=== PATIENT | female | born 1965 | race African-American/Black ===

== ENCOUNTER 2016-11-26 19:23 | Emergency (ER) | payer SELFPAY ==
[~2016-11-26] VITALS: Ht 165.1 cm; Wt 106.6 kg
[2016-11-26 19:45] VITALS: BP 179/81
[2016-11-26] MEDS ORDERED: predniSONE 20 MG TABLET PO ONE (19:45)
[2016-11-26] MEDS ORDERED: FAMOTIDINE 20 MG TABLET. PO ONE (19:45)
[2016-11-26] MEDS ORDERED: diphenhydrAMINE HCL 25 MG CAPSULE PO ONE (19:45)
--- NOTE | 2016-11-26 19:48 | PHYS DOC ---
Adult General Chief Complaint Chief Complaint: INSECT BITE HPI HPI Patient is a 51 year old femal presents to the emergency department stating that 4 days ago she was stung in the left upper head by a bee. She states that she did not see any stinger to pull out. She states since that time she has had a lot of pressure around to the the eye area as well as the forehead area. She does have nasal congestion. Patient states that she believes that this is all related to a bee sting. Patient denies any shortness of air difficulty breathing. She states that she has had a lot of pain and discomfort with burning sensation. Review of Systems Review of Systems Constitutional: Denies fever or chills [] Eyes: Denies change in visual acuity, redness, or eye pain [] HENT: Denies nasal congestion or sore throat [] Respiratory: Denies cough or shortness of breath [] Cardiovascular: No additional information not addressed in HPI [] GI: Denies abdominal pain, nausea, vomiting, bloody stools or diarrhea [] : Denies dysuria or hematuria [] Musculoskeletal: Denies back pain or joint pain [] Integument: Denies rash or skin lesions. C/o bee sting Neurologic: Denies headache, focal weakness or sensory changes [] Endocrine: Denies polyuria or polydipsia [] Current Medications Current Medications Current Medications Medications (Trade) Dose Ordered Sig/Noah Start Time Stop Time Status Last Admin Dose Admin Diphenhydramine HCl (Benadryl) 25 mg 1X ONCE 11/26/16 19:45 11/26/16 19:46 DC 11/26/16 19:57 25 MG Diphtheria/ Tetanus/Acell Pertussis (Boostrix) 0.5 ml ONCE ONCE 11/26/16 20:00 11/26/16 20:01 DC 11/26/16 20:46 0.5 ML Famotidine (Pepcid) 20 mg 1X ONCE 11/26/16 19:45 11/26/16 19:46 DC 11/26/16 19:57 20 MG Guaifenesin (MUCINEX ER with DM) 1 tab BID 11/26/16 22:00 11/26/16 21:30 1 TAB Ibuprofen (Motrin) 800 mg 1X ONCE 11/26/16 22:00 11/26/16 22:01 11/26/16 21:30 800 MG Prednisone (Prednisone) 40 mg 1X ONCE 11/26/16 19:45 11/26/16 19:46 DC 11/26/16 19:57 40 MG Pseudoephedrine HCl (Sudafed) 30 mg 1X ONCE 11/26/16 22:00 11/26/16 22:01 11/26/16 21:31 30 MG Allergies Allergies Allergies Coded Allergies Type Severity Reaction Last Updated Verified No Known Drug Allergies 11/26/16 No Physical Exam Physical Exam Constitutional: Well developed, well nourished, no acute distress, non-toxic appearance. [] HENT: Normocephalic, atraumatic, bilateral external ears normal, oropharynx moist, no oral exudates, nose normal. [] Eyes: PERRLA, EOMI, conjunctiva normal. Patient with left eye clear drainage noted. Slight swelling noted around the left maxillary area. Neck: Normal range of motion, no tenderness, supple, no stridor. [] Cardiovascular:Heart rate regular rhythm, no murmur [] Lungs & Thorax: Bilateral breath sounds clear to auscultation [] Skin: Warm, dry, no erythema, no rash. [] Back: No tenderness Extremities: No tenderness, no cyanosis, no clubbing, ROM intact, no edema. [] Neurologic: Alert and oriented X 3, normal motor function, normal sensory function, no focal deficits noted. [] Psychologic: Affect normal, judgement normal, mood normal. [] Current Patient Data Vital Signs Vital Signs Date Time Temp Pulse Resp B/P (MAP) Pulse Ox O2 Delivery O2 Flow Rate FiO2 11/26/16 19:45 98.4 80 18 95 Room Air 98.4 Lab Values Laboratory Tests Test 11/26/16 20:57 11/26/16 21:15 Urine Collection Type Void Urine Color Yellow Urine Clarity Clear Urine pH 6.5 Urine Specific Keiser 1.020 Urine Protein Negative mg/dL (NEG-TRACE) Urine Glucose (UA) Negative mg/dL (NEG) Urine Ketones (Stick) Negative mg/dL (NEG) Urine Blood Negative (NEG) Urine Nitrite Negative (NEG) Urine Bilirubin Negative (NEG) Urine Urobilinogen Dipstick 0.2 mg/dL (0.2 mg/dL) Urine Leukocyte Esterase Trace (NEG) Urine RBC 1-2 /HPF (0-2) Urine WBC 1-4 /HPF (0-4) Urine Squamous Epithelial Cells Few /LPF Urine Amorphous Sediment Present /HPF Urine Bacteria Moderate /HPF (0-FEW) Urine Mucus Slight /LPF Urine Opiates Screen Neg (NEG) Urine Methadone Screen Neg (NEG) Urine Barbiturates Neg (NEG) Urine Phencyclidine Screen Neg (NEG) Urine Amphetamine/Methamphetamine Neg (NEG) Urine Benzodiazepines Screen Neg (NEG) Urine Cocaine Screen Neg (NEG) Urine Cannabinoids Screen Neg (NEG) Urine Ethyl Alcohol Neg (NEG) White Blood Count 6.9 x10^3/uL (4.0-11.0) Red Blood Count 5.07 x10^6/uL (3.50-5.40) Hemoglobin 14.1 g/dL (12.0-15.5) Hematocrit 43.8 % (36.0-47.0) Mean Corpuscular Volume 86 fL (79-100) Mean Corpuscular Hemoglobin 28 pg (25-35) Mean Corpuscular Hemoglobin Concent 32 g/dL (31-37) Red Cell Distribution Width 14.7 % (11.5-14.5) H Platelet Count 308 x10^3/uL (140-400) Neutrophils (%) (Auto) 48 % (31-73) Lymphocytes (%) (Auto) 44 % (24-48) Monocytes (%) (Auto) 6 % (0-9) Eosinophils (%) (Auto) 1 % (0-3) Basophils (%) (Auto) 1 % (0-3) Neutrophils # (Auto) 3.3 x10^3uL (1.8-7.7) Lymphocytes # (Auto) 3.0 x10^3/uL (1.0-4.8) Monocytes # (Auto) 0.4 x10^3/uL (0.0-1.1) Eosinophils # (Auto) 0.1 x10^3/uL (0.0-0.7) Basophils # (Auto) 0.0 x10^3/uL (0.0-0.2) Sodium Level 143 mmol/L (136-145) Potassium Level 4.6 mmol/L (3.5-5.1) Chloride Level 104 mmol/L (98-107) Carbon Dioxide Level 31 mmol/L (21-32) Anion Gap 8 (6-14) Blood Urea Nitrogen 16 mg/dL (7-20) Creatinine 1.0 mg/dL (0.6-1.0) Estimated GFR (Cockcroft-Gault) 70.2 BUN/Creatinine Ratio 16 (6-20) Glucose Level 88 mg/dL (70-99) Calcium Level 9.5 mg/dL (8.5-10.1) Total Bilirubin 0.2 mg/dL (0.2-1.0) Aspartate Amino Transferase (AST) 27 U/L (15-37) Alanine Aminotransferase (ALT) 43 U/L (14-59) Alkaline Phosphatase 84 U/L (46-116) Total Protein 8.7 g/dL (6.4-8.2) H Albumin 4.4 g/dL (3.4-5.0) Albumin/Globulin Ratio 1.0 (1.0-1.7) Laboratory Tests 11/26/16 21:15 Laboratory Tests 11/26/16 21:15 EKG EKG [] Radiology/Procedures Radiology/Procedures [facility] [address] [place], [place] [id number] IMAGING REPORT Signed PATIENT: HUNTER ROBERT V ACCOUNT: [id number] : 1965 LOCATION: ER AGE: 51 SEX: F EXAM STATUS: REG ER ORD. PHYSICIAN: JOSEFINA MADDEN APRN REASON: head pain with pain behind eyes. PROCEDURE: CT HEAD AND MAXILLOFACIAL WO CT HEAD AND MAXILLOFACIAL WO dated 11/26/2016 8:56 PM Indication: Left eye pain, head pain, pain behind eyes Comparison: No comparison is available. Technique: CT imaging was performed of the[head and maxillofacial region], multiplanar reconstruction images submitted. One or more of the following individualized dose reduction techniques were utilized for this examination: 1. Automated exposure control 2. Adjustment of the mA and/or kV according to patient size 3. Use of iterative reconstruction technique. Findings: Head: No acute intracranial hemorrhage is identified. Bang-white differentiation of the major vascular territories is preserved. There is no intra-axial mass effect, midline shift, or extra-axial fluid collection. The ventricles, sulci, cisterns are within normal limits in size and configuration. Maxillofacial CT: There are very small dependent air-fluid levels in the maxillary sinuses bilaterally. There is patchy relatively mild ethmoid air cell mucosal thickening bilaterally. Sphenoid sinus is small, although aerated. Ostiomeatal units are narrowed by mucosal thickening bilaterally. Frontal sinus is not pneumatized. No acute fracture is identified IMPRESSION: 1. There are very small air-fluid levels in the maxillary sinuses bilaterally which may be seen with acute sinusitis. 2. No acute intracranial abnormality is identified. Electronically signed by: Bella Wagoner MD (11/26/2016 9:14 PM) [facility] DICTATED and SIGNED BY: BELLA WAGONER MD DATE: 11/26/162108 CC: JOSEFINA MADDEN APRN; NO PCP ~ [] Course & Med Decision Making Course & Med Decision Making Pertinent Labs and Imaging studies reviewed. (See chart for details) Patient has been up to the bathroom multiple times to wet her hair down. With no discomfort or distress noted. Patient was provided with Benadryl, prednisone and Pepcid here in the emergency department. The swelling around her eye has decreased however she states that she still continues to have extreme pressure. Providing her discharge instructions as with a sinus infection as well and she did stated that she was having severe pain and discomfort and bends over holding her face on the left side. Offered patient a CT scan to identify any other reasons why she should be having this much pain and discomfort. Patient states I feel that this needs to be completed. Patients pain and discomfort is not in proportion to her complaint. 205 Patient continues to have periodic outburst of crying stating she is in pain. However when patient is focusing on conversation or providing UA or ambulating she demonstrates no pain or discomfort. 6 CT scan was negative for any head bleeds. However radiologist did identify an acute sinusitis. Patient has since had labs drawn. It appears that she has a urinary tract infection as well. Anticipate discharging the patient on Levaquin for urinary tract infection as well as sinusitis. Patient will be provided with Sudafed here in the emergency department as well as Mucinex DM, and Motrin. Patient is now requesting a Benadryl. Explained that we will be providing her with the above medications. 2135 CBC, CMP within normal limits. Patient will be discharged home in stable condition signs and symptoms to return back to emergency department been provided. Patient will be placed on Levaquin for UTI as well as sinus infection. We'll recommend that the patient take Sudafed [id number] to help with the sinus pressure and discomfort Mucinex DM will also help with the sinus discomfort as well. Recommended plenty of fluids such as water and cranberry juice. Avoid cranberry juice cocktail, carbonated beverages, citrus fruits and alcohol sees her considered irritants to the bladder. Patient will be discharged home in stable condition signs and symptoms to return back to emergency department has been provided. Dragon Disclaimer Dragon Disclaimer This electronic medical record was generated, in whole or in part, using a voice recognition dictation system. Departure Departure Impression: Primary Impression: Sinusitis Additional Impression: Urinary tract infection Disposition: 01 HOME, SELF-CARE Condition: STABLE Patient Instructions: Sinusitis, [id number], Urinary Tract Infection, Easy-to -Read Additional Instructions: Activity as tolerated. Sudafed instructed by environmental safety specialist [id number]. Mucinex DM may also be taken as instructed by environmental safety specialist [id number]. Levaquin as prescribed. Drink plenty of fluids such as water and cranberry juice. Avoid cranberry juice cocktail, carbonated beverages, citrus fruits medical disease are considered irritants to the bladder. You may also try warm moist packs to the forehead to help with pain and discomfort. Follow-up with primary care physician in the next 5-7 days. Return back to emergency prior signs symptoms of become worse. Scripts Levofloxacin (LEVAQUIN) 500 Mg Tablet 1 TAB PO DAILY, #7 TAB Prov: JOSEFINA MADDEN APRN 11/26/16 Problem Qualifiers JOSEFINA MADDEN APRN Nov 26, 2016 19:48
[2016-11-26] MEDS ORDERED: DIPHTH,PERTUSS(ACELL),TET TOX 0.5 ML DISP.SYRIN. VAX IM ONE (20:00)
[2016-11-26 21:05] LABS: BILIRUBIN,URINE NEGATIVE (NEG); GLUCOSE,URINE NEGATIVE (NEG); NITRITE,URINE NEGATIVE (NEG); PH,URINE 6.5; PROTEIN,URINE NEGATIVE (NEG-TRACE); UROBILINOGEN,URINE 0.2 mg/dL (0.2 mg/dL)
[2016-11-26 21:11] LABS: BARBITURATES NEG (NEG); BENZODIAZEPINES NEG (NEG); CANNABINOIDS NEG (NEG); COCAINE NEG (NEG); METHADONE NEG (NEG); OPIATES NEG (NEG); PHENCYCLIDINE NEG (NEG)
[2016-11-26 21:17] LABS: BACTERIA,URINE MODERATE /HPF (0-FEW); SQUAMOUS EPITHELIAL CELL,UR FEW /LPF
--- NOTE | 2016-11-26 21:17 | RAD ---
CT HEAD AND MAXILLOFACIAL WO dated 11/26/2016 8:56 PM Indication: Left eye pain, head pain, pain behind eyes Comparison: No comparison is available. Technique: CT imaging was performed of the[head and maxillofacial region], multiplanar reconstruction images submitted. One or more of the following individualized dose reduction techniques were utilized for this examination: 1. Automated exposure control 2. Adjustment of the mA and/or kV according to patient size 3. Use of iterative reconstruction technique. Findings: Head: No acute intracranial hemorrhage is identified. Bang-white differentiation of the major vascular territories is preserved. There is no intra-axial mass effect, midline shift, or extra-axial fluid collection. The ventricles, sulci, cisterns are within normal limits in size and configuration. Maxillofacial CT: There are very small dependent air-fluid levels in the maxillary sinuses bilaterally. There is patchy relatively mild ethmoid air cell mucosal thickening bilaterally. Sphenoid sinus is small, although aerated. Ostiomeatal units are narrowed by mucosal thickening bilaterally. Frontal sinus is not pneumatized. No acute fracture is identified IMPRESSION: 1. There are very small air-fluid levels in the maxillary sinuses bilaterally which may be seen with acute sinusitis. 2. No acute intracranial abnormality is identified. Electronically signed by: Kuldip Florence MD (11/26/2016 9:14 PM) [facility]
[2016-11-26 21:22] LABS: BASO % 1 % (0-3); EOS % 1 % (0-3); HEMATOCRIT 43.8 % (36.0-47.0); HEMOGLOBIN 14.1 g/dL (12.0-15.5); LYMPH % 44 % (24-48); MEAN CORPUSCULAR HEMOGLOBIN 28 pg (25-35); MEAN CORPUSCULAR HGB CONC 32 g/dL (31-37); MEAN CORPUSCULAR VOLUME 86 fL (79-100); MONO % 6 % (0-9); NEUT % 48 % (31-73); PLATELET COUNT 308 x10^3/uL (140-400); RED BLOOD COUNT 5.07 x10^6/uL (3.50-5.40); RED CELL DISTRIBUTION WIDTH 14.7 % (11.5-14.5); WHITE BLOOD COUNT 6.9 x10^3/uL (4.0-11.0)
[2016-11-26 21:27] LABS: CALCIUM 9.5 mg/dL (8.5-10.1); GFR 70.2; POTASSIUM 4.6 mmol/L (3.5-5.1)
[2016-11-26] MEDS ORDERED: LEVO500T59 PO (21:31)
[2016-11-26 21:33] LABS: ALBUMIN 4.4 g/dL (3.4-5.0); TOTAL BILIRUBIN 0.2 mg/dL (0.2-1.0); TOTAL PROTEIN 8.7 g/dL (6.4-8.2)
[2016-11-26] MEDS ORDERED: IBUPROFEN 800 MG TABLET. PO ONE (22:00)
[2016-11-26] MEDS ORDERED: guaiFENesin DM 600/30MG 1 TAB TAB.ER.12H PO SCH (22:00)
[2016-11-26] MEDS ORDERED: PSEUDOEPHEDRINE 30 MG TABLET. PO ONE (22:00)
== END 2016-11-26 21:40 | disposition home or self-care (01) ==
LOC: ER 19:23
DX: J32.9 Chronic sinusitis, unspecified (principal); N39.0 Urinary tract infection, site not specified; T63.441A Toxic effect of venom of bees, accidental (unintentional), initial encounter; Y93.89 Activity, other specified; Y99.8 Other external cause status; Y92.89 Other specified places as the place of occurrence of the external cause
CPT/HCPCS: 36415; 70450; 70486; 80053; 80307; 81001; 85025; 87086; 90471; 90715; 99285; J7512; Q0163; G0479

== ENCOUNTER 2020-01-14 21:09 | Emergency (ER) | payer SELFPAY ==
[~2020-01-14] VITALS: Ht 167.6 cm; Wt 109.0 kg
[~2020-01-14 21:09] MED LIST: LEVO500T59 PO
[2020-01-14] MEDS ORDERED: diazePAM 5 MG TABLET PO ONE (21:30)
--- NOTE | 2020-01-14 21:32 | PHYS DOC ---
Past Medical History Past Medical History: Asthma Past Surgical History: No Surgical History Smoking Status: Never Smoker Alcohol Use: None Drug Use: None General Adult EDM: Chief Complaint: LOWER EXT PAIN HPI: HPI: Patient is a 54 year old female arrives via EMS with a chief complaint of bilateral thigh cramping. Patient states the symptoms began about 845 and returned about 9:00 patient describes intermittent severe thigh cramping. Patient denies any trauma or recent illnesses. Pain radiates from the thighs down the legs little bit. Patient denies any focal weakness or numbness. Review of Systems: Review of Systems: Constitutional: Denies fever or chills. [] Eyes: Denies change in visual acuity. [] HENT: Denies nasal congestion or sore throat. [] Respiratory: Denies cough or shortness of breath. [] Cardiovascular: Denies chest pain or edema. [] GI: Denies abdominal pain, nausea, vomiting, bloody stools or diarrhea. [] : Denies dysuria. [] Musculoskeletal: Denies back pain but has bilateral thigh pain Integument: Denies rash. [] Neurologic: Denies headache, focal weakness or sensory changes. [] Endocrine: Denies polyuria or polydipsia. [] Lymphatic: Denies swollen glands. [] Psychiatric: Denies depression or anxiety. [] Heart Score: Risk Factors: Risk Factors: DM, Current or recent (<one month) smoker, HTN, HLP, family histo ry of CAD, obesity. Risk Scores: Score 0 - 3: 2.5% MACE over next 6 weeks - Discharge Home Score 4 - 6: 20.3% MACE over next 6 weeks - Admit for Clinical Observation Score 7 - 10: 72.7% MACE over next 6 weeks - Early Invasive Strategies Current Medications: Current Medications Medications (Trade) Dose Ordered Sig/Noah Start Time Stop Time Status Last Admin Dose Admin Diazepam (Valium) 5 mg 1X ONCE 01/14/20 21:30 01/14/20 21:31 UNV Allergies: Allergies: Allergies Coded Allergies Type Severity Reaction Last Updated Verified No Known Drug Allergies 11/26/16 No Physical Exam: PE: Constitutional: Well developed, well nourished, no acute distress, non-toxic appearance. [] HENT: Normocephalic, atraumatic, bilateral external ears normal, no trismus nose normal. [] Eyes: PERRLA, EOMI, conjunctiva normal, no discharge. [] Neck: Normal range of motion, no tenderness, supple, no stridor. [] Cardiovascular:Heart rate regular rhythm, peripheral pulses are intact, cap refill is brisk Lungs & Thorax: Bilateral breath sounds clear, no respiratory distress Abdomen: Bowel sounds normal, soft, no tenderness, no masses, no pulsatile masses. [] Skin: Warm, dry, no erythema, no rash. [] Back: No tenderness, no CVA tenderness. [] Extremities: Mild tenderness to bilateral thighs, neurovascular intact distally, no signs of cauda equina, negative Homans sign Neurologic: Alert and oriented X 3, normal motor function, normal sensory function, no focal deficits noted. [] Psychologic: Affect normal, judgement normal, mood normal. [] Current Patient Data: Labs: Laboratory Tests Test 01/14/20 21:34 White Blood Count 7.1 x10^3/uL Red Blood Count 4.55 x10^6/uL Hemoglobin 12.8 g/dL Hematocrit 38.5 % Mean Corpuscular Volume 85 fL Mean Corpuscular Hemoglobin 28 pg Mean Corpuscular Hemoglobin Concent 33 g/dL Red Cell Distribution Width 14.7 % Platelet Count 263 x10^3/uL Neutrophils (%) (Auto) 27 % Lymphocytes (%) (Auto) 65 % Monocytes (%) (Auto) 6 % Eosinophils (%) (Auto) 2 % Basophils (%) (Auto) 0 % Neutrophils # (Auto) 1.9 x10^3/uL Lymphocytes # (Auto) 4.6 x10^3/uL Monocytes # (Auto) 0.4 x10^3/uL Eosinophils # (Auto) 0.1 x10^3/uL Basophils # (Auto) 0.0 x10^3/uL Platelet Estimate Pending Sodium Level 138 mmol/L Potassium Level 4.2 mmol/L Chloride Level 103 mmol/L Carbon Dioxide Level 28 mmol/L Anion Gap 7 Blood Urea Nitrogen 17 mg/dL Creatinine 0.8 mg/dL Estimated GFR (Cockcroft-Gault) 89.8 Glucose Level 119 mg/dL Calcium Level 9.2 mg/dL Magnesium Level 1.6 mg/dL Creatine Kinase 473 U/L Current Medications Medications (Trade) Dose Ordered Sig/Noah Route PRN Reason Start Time Stop Time Status Last Admin Dose Admin Diazepam (Valium) 5 mg 1X ONCE PO 01/14/20 21:30 01/14/20 21:31 DC 01/14/20 21:44 Vital Signs: Vital Signs Date Time Temp Pulse Resp B/P (MAP) Pulse Ox O2 Delivery O2 Flow Rate FiO2 01/14/20 21:15 98.0 71 16 165/103 (123) 97 Room Air 98.0 EKG: EKG: [] Radiology/Procedures: Radiology/Procedures: [] Course & Med Decision Making: Course & Med Decision Making Pertinent Labs and Imaging studies reviewed. (See chart for details) [] 54-year-old female presents with a chief complaint of bilateral thigh cramping. There is no evidence of DVT on exam. Patient does have mild elevated CK which may be the etiology. Patient is neurologically intact. No signs of cauda equina. Negative Homans sign. Peripheral pulses are intact. No signs of infection. Patient feels better after Valium. Dragon Disclaimer: Dragon Disclaimer: This electronic medical record was generated, in whole or in part, using a voice recognition dictation system. Departure Departure Impression: Primary Impression: Muscle cramps Disposition: HOME, SELF-CARE Condition: STABLE Referrals: NO PCP (PCP) [facility] [address] [place] [address] [facility] [address] [place] [address] [facility] [address] Patient Instructions: Muscle Cramps Additional Instructions: EMERGENCY DEPARTMENT GENERAL DISCHARGE INSTRUCTIONS THANK YOU for coming to [facility] Emergency Department (ED) today and trusting us with your care. We trust that you had a positive experience in our Emergency Department. If you wish to speak to the department Management you can contact the preparation department supervisor at . YOUR FOLLOW UP INSTRUCTIONS ARE FOLLOWS: Do you have a private doctor? If you do not have a private doctor, please ask for a resource list of physicians or clinics that may be able to assist you with follow up care. The Emergency Physician has interpreted your x-rays. The X-ray specialist will also review them. If there is a change in the findings you will be notified in 48 hours when at all possible. A lab test or lab culture may have been done, your results will be reviewed and you will be notified if you need a change in treatment. ADDITIONAL INSTRUCTIONS AND INFORMATION Your care today has been supervised by a physician who is specially trained in emergency care. Many problems require more than one evaluation for a complete diagnosis and treatment. We recommend that you schedule your follow up appointment as recommended to ensure complete treatment of your illness or injury. If you are unable to obtain follow up care and continue to have a problem, or if your condition worsens we recommend that you return to the ED. We are not able to safely determine your condition over the phone nor are we able to give sound medical advice over the phone. For these safety reasons, if you call for medical advice we will ask you to come to the ED for further evaluation If you have any questions regarding these discharge instructions please call the ED at . SAFETY INFORMATION In the interest of safety, wellness, and injury prevention; we encourage you to wear your seatbelt, if you smoke; quit smoking, and we encourage your family to use protective helmet for bicycling and other sporting events that present an increased risk for head injury. IF YOUR SYMPTOMS WORSEN OR NEW SYMPTOMS DEVELOP, OR YOU HAVE CONCERNS ABOUT YOUR CONDITION; OR IF YOUR CONDITION WORSENS WHILE YOU ARE WAITING FOR YOUR FOLLOW UP APPOINTMENT; EITHER CONTACT YOUR PRIMARY CARE DOCTOR, THE PHYSICIAN WHOSE NAME AND NUMBER YOU WERE GIVEN, OR RETURN TO THE ED IMMEDIATELY. Scripts Diazepam (VALIUM) 5 Mg Tablet 5 MG PO TID for spasm, #12 TAB Prov: MOHINI ARAUJO MD 01/14/20 MOHINI ARAUJO MD Jan 14, 2020 21:32
[2020-01-14 21:53] LABS: CALCIUM 9.2 mg/dL (8.5-10.1); CREATININE 0.8 mg/dL (0.6-1.0); GFR 89.8; POTASSIUM 4.2 mmol/L (3.5-5.1)
[2020-01-14 21:59] LABS: MAGNESIUM 1.6 mg/dL (1.8-2.4)
[2020-01-14 22:05] LABS: BASO % 0 % (0-3); EOS # 0.1 x10^3/uL (0.0-0.7); EOS % 2 % (0-3); HEMATOCRIT 38.5 % (36.0-47.0); HEMOGLOBIN 12.8 g/dL (12.0-15.5); LYMPH # 4.6 x10^3/uL (1.0-4.8); LYMPH % 65 % (24-48); MEAN CORPUSCULAR HEMOGLOBIN 28 pg (25-35); MEAN CORPUSCULAR HGB CONC 33 g/dL (31-37); MEAN CORPUSCULAR VOLUME 85 fL (79-100); MONO # 0.4 x10^3/uL (0.0-1.1); MONO % 6 % (0-9); NEUT # 1.9 x10^3/uL (1.8-7.7); NEUT % 27 % (31-73); PLATELET COUNT 263 x10^3/uL (140-400); RED BLOOD COUNT 4.55 x10^6/uL (3.50-5.40); RED CELL DISTRIBUTION WIDTH 14.7 % (11.5-14.5); WHITE BLOOD COUNT 7.1 x10^3/uL (4.0-11.0)
[2020-01-14] MEDS ORDERED: DIAZ5TAB PO (22:40)
[2020-01-14 23:00] VITALS: BP 167/72
[2020-01-14 23:54] LABS: % ATYL 1 % (0-0); % LYMPHS 88 % (24-48); % MONOS 1 % (0-10); % SEGS 10 % (35-66); PLT ESTIMATE ADEQUATE (ADEQUATE)
== END 2020-01-14 23:05 | disposition home or self-care (01) ==
LOC: ER 21:09
DX: R25.2 Cramp and spasm (principal); M79.651 Pain in right thigh; M79.652 Pain in left thigh
CPT/HCPCS: 36415; 80048; 82550; 83735; 85007; 85025; 99283

== ENCOUNTER 2020-03-11 03:40 | Emergency (ER) | payer SELFPAY ==
[~2020-03-11] VITALS: Ht 167.6 cm; Wt 127.7 kg
[2020-03-11 03:40] VITALS: BP 170/73
[~2020-03-11 03:40] MED LIST changes: +DIAZ5TAB PO
--- NOTE | 2020-03-11 04:17 | PHYS DOC ---
Past Medical History Past Medical History: Asthma Past Surgical History: No Surgical History Smoking Status: Current Some Day Smoker Alcohol Use: None Drug Use: None General Adult EDM: Chief Complaint: LOWER EXT PAIN HPI: HPI: Patient is a 54 year old female who presents with proximal bilateral thigh pain via EMS. The pain started around 0330. Pt is able to ambulate. The pain woke her up from sleep. She describes it as "crampy" pain that starts on the proximal medial aspect and radiates to the back of her leg. Pt denies any trauma or falls. Pt did request Valium by name. Reports she has had this sensation in the past. Review of Systems: Review of Systems: Constitutional: Denies fever or chills Eyes: Denies redness or eye pain HENT: Denies nasal congestion or sore throat Respiratory: Denies cough or shortness of breath Cardiovascular: Denies chest pain or palpitations GI: Denies abdominal pain, nausea, or vomiting : Denies dysuria or hematuria Musculoskeletal: Denies back pain or joint pain, endorses b/l proximal LE pain Integument: Denies rash or skin lesions Neurologic: Denies headache, focal weakness or sensory changes Complete systems were reviewed and found to be within normal limits, except as documented in this note. Allergies: Allergies: Allergies Coded Allergies Type Severity Reaction Last Updated Verified No Known Drug Allergies 11/26/16 No Physical Exam: PE: Constitutional: Well developed, obese, no acute distress, non-toxic appearance HENT: Normocephalic, atraumatic Eyes: Conjunctiva normal, no discharge Neck: Normal range of motion, no tenderness, supple Lungs & Thorax: No respiratory distress, equal chest rise and fall Abdomen: Soft, no tenderness Skin: Warm, dry, no erythema, no rash Extremities: Tenderness to palpation on b/l proximal lower extremity, neruovascularly intact bl LE, ROM intact, no edema Neurologic: Alert and oriented X 3, normal motor function, normal sensory function, no focal deficits noted Psychologic: Affect normal, judgment normal Current Patient Data: Vital Signs: Vital Signs Date Time Temp Pulse Resp B/P (MAP) Pulse Ox O2 Delivery O2 Flow Rate FiO2 03/11/20 03:40 98.2 86 16 170/73 (105) 99 Room Air 98.2 EKG: EKG: [] Radiology/Procedures: Radiology/Procedures: [] Course & Med Decision Making: Course & Med Decision Making 54 yo female pt presents via ems with sudden bl proximal lower extremity pain that started around 0330. Pt is able to ambulate on arrival. Pulses and sensation intact. pt requested Valium by name. MSE completed. Pt advised would obtain labs to check electrolytes and give symptomatic treatment. Per "[facility] Self Pay Policy, pt elected to not proceed with evaluation given inability to pay requested copay. pt left ama and advised to follow up with PCP or urgent care for further evaluation and treatment. Patient stable for discharge with outpatient follow-up with PCP. Discussed findings and plan with patient, who acknowledges understanding and agreement. Cal Disclaimer: Cla Disclaimer: This electronic medical record was generated, in whole or in part, using a voice recognition dictation system. Departure Departure Impression: Primary Impression: Bilateral thigh pain Additional Impression: Left against medical advice Disposition: 07 AMA/ELOPED/LWBS Condition: STABLE Referrals: NO PCP (PCP) CIARAN DIALLO DO Mar 11, 2020 04:17
== END 2020-03-11 04:08 | disposition left against medical advice (07) ==
LOC: ER 03:40
DX: M79.652 Pain in left thigh (principal); M79.651 Pain in right thigh; J45.909 Unspecified asthma, uncomplicated; F17.200 Nicotine dependence, unspecified, uncomplicated
CPT/HCPCS: 99283